=== PATIENT | male | born 1945 | race Caucasian/White ===

== ENCOUNTER 2024-09-06 08:21 | Inpatient (IN) | payer OTHER, SELFPAY ==
[2024-09-05] VITALS (11 sets, daily range): BP systolic 75–195; BP diastolic 29–92; BMI 25.7; BMI 24.8
[2024-09-05 09:26] LABS: % Basophils 0.2 % (0-2); % Eosinophils 3.5 % (0-6); % Immature Granulocytes 0.2 % (0-0.5); % Lymphocytes 25.6 % (20.5-51.1); % Monocytes 10.5 % (1.7-9.3); Absolute Eosinophils 0.2 10^3/uL (0-0.7); Absolute Lymphocytes 1.5 10^3/uL (1.2-3.4); Absolute Monocytes 0.6 10^3/uL (0.1-0.6); Absolute Neutrophils 3.5 10^3/uL (1.4-6.5); Hematocrit 36.3 % (39.0-52.0); Hemoglobin 12.3 g/dL (13.0-18.0); Mean Corp Hgb Conc. 33.9 g/dL (33.0-37.0); Mean Corpuscular Hgb 33.6 pg (27.0-31.0); Mean Corpuscular Volume 99.2 fL (80.0-94.0); Mean Platelet Volume 9.1 fL (7.4-10.4); Nucleated Red Blood Cells % 0 % (-); Platelet Count 141 10^3/uL (130-400); Red Blood Cell Count 3.66 10^6/uL (4.70-6.10); Red Cell Dist. Width 12.5 % (11.5-14.5); White Blood Cell Count 5.7 10^3/uL (4.8-10.8)
[2024-09-05 09:36] LABS: INR 1.03; PT 13.8 Sec (11.4-14.6)
[2024-09-05 09:39] LABS: ALT (SGPT) 15 U/L (0-50); AST (SGOT) 13 U/L (17-59); Albumin 4.5 g/dl (3.5-5.0); Alkaline Phosphatase 79 U/L (38-126); Blood Urea Nitrogen 40 mg/dl (9-20); Calcium 9.4 mg/dl (8.4-10.2); Carbon Dioxide 21 mmol/L (22-30); Chloride 110 mmol/L (98-107); Estimated Creatinine Clearance 25 ml/min; Glucose 113 mg/dl (70-99); Potassium 4.7 mmol/L (3.5-5.1); Sodium 141 mmol/L (135-145); Total Bilirubin 0.9 mg/dl (0.2-1.3); Total Protein 7.2 g/dl (6.3-8.2); eGFR 24.17
[2024-09-05 09:51] LABS: Troponin I 0.014 ng/ml
--- NOTE | 2024-09-05 10:00 | ED.GENMED ---
History of Present Illness
General
Chief Complaint: Numbness
Source: patient
Exam Limitations: none
Time Seen by Provider: 09/05/24 08:33
Nursing documentation reviewed up to this point in time: agreed with
History of Present Illness
History of Present Illness:
79 y/o M with h/o HTN
here with facial and right upper and lower extremity numbness that began last evening around 830 when patient was just laying down. Patient says he was awake and felt a tingling first in his lips followed by right arm and felt like it was nearly
the entire arm including his fingers as well as his right foot. It lasted about half an hour. Patient said he got up and walked around and had no weakness, headache, vision changes, balance problems, neck pain, chest pain or shortness of breath.
Patient said initially that the symptoms fully resolved however after being asked several times he says he has a little bit of tingling around his mouth this morning especially his right bottom lip. He did not noticed that his speech was slightly
thickened. 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 Patient takes blood pressure medication but is not on aspirin or Plavix. He has never
had a stroke. He has not had any neck manipulation.
He says he otherwise feels fine this morning.
Past History
Past History
ED Past Medical History: HTN
ED Past Surgical History: Cholecystectomy
Social History
Tobacco: Non-smoker
Alcohol: None
Personal:
Living: with family
Review of Systems
Review of Systems
Allergies reviewed?: Yes
All Other Systems: Not applicable
Phy Exam
Physical Exam
Physical Exam:
GENERAL: Alert , in no apparent distress
HEAD: NCAT
EYE: pupils equal and reactive, no nystagmus, no photophobia
NECK: Supple,full rom, nontender
ENT: o/p clr, mmm.
CARDIAC: Regular rate and rhythm . no edema
LUNGS: Clear breath sounds bilaterally, no acute respiratory distress, no wheezes/rales/rhonchi
ABDOMEN: Soft, without focal tenderness, no r/g, no cvat
NEUROLOGICAL: Alert and orientedx 4, cn intact, slightly dysarthric at times, no facial asymmetry, 5/5 strength in UE/LE, sensation intact, romberg neg, ambulates without assistance, neg pronator drift
SKIN: Warm and dry, skin intact.
MUSCULOSKELETAL: No edema, well perfused.
PSYCH: Normal and appropriate interaction.
Course
Orders/Labs/Results
Orders:
Orders
09/05/24 09:10
Electrocardiogram (*1) Stat
Reason for Study: Other
Other Reason for Exam: neuro symptoms
Cardiac Monitoring- Treatment ONCE
EKG- Treatment ONCE
09/05/24 09:12
Cardiovascular Evaluation Urgent
Complete Blood Count/With Diff Urgent
Comprehensive Metabolic Panel Urgent
Ferritin Urgent
Folate Urgent
Magnesium Urgent
PTT Urgent
Phosphorus Urgent
Prothrombin Time Urgent
TSH Reflex To Free T4 Urgent
Troponin I Urgent
Vitamin B12 Urgent
09/05/24 09:31
CT Head W/o Iv Contrast Urgent
Reason For Exam: numbness face RUE, RLL, elevated labs
09/05/24 Lunch
Cholesterol Lowering
At Your Request: Full Participation
09/05/24 10:55
0.9% Sodium Chloride 500 ml [Nss] 500 ml IV BOLUS
Carotid US [US Cerebrovascular] Urgent
Comment:
Reason For Exam: R facial numbness; tia
09/05/24 10:59
Urinalysis Reflex To Culture Urgent
Date Specimen was Collected: 09/05/24
Time Specimen was Collected: 09:11
Urine Microscopic Reflex Cult Urgent
09/05/24 11:16
Aspirin 325 mg PO NOW STA
09/05/24 12:49
Old Records Request [Obtain Records] As Directed
Dates of Information to be Released: most recent
Type of Information Requested: Entire Record
Radiology Results
Lab Results
Last Office Visit H&P
If Other, list type of info requested: dr kandi james [phone] and [facility]
Obtain Records from: [facility] [phone].MRI [address] Brain most recent
09/05/24 12:58
MRI Brain [MR Brain Without Contrast] Routine
Comment:
Reason For Exam: Face, arm, leg numbness concern CVA/TIA
OK for patient to be off Cardiac Monitoring for MRI: Yes
Recent pill cam endoscopy?: No
Pacemaker/Defibrillator?: No
HydrALAZINE [Apresoline] 10 mg IV Q6HPRN PRN
09/05/24 12:59
NEUROLOGY CONSULT Routine
Consulting Provider: Spencer Lau
Was physician already notified: Yes
Reason for consult: Right face, arm, leg tingling numbness concern CVA/TIA
Speech Therapy Eval & Treat Routine
09/05/24 13:00
Admit/Transfer Patient As Directed
Co-Sign Provider:
Level of Care: Observation services
Assign to:: Telemetry
Physician / Group: rosalba hendrix
Diagnosis: r sided facial, hand arm, leg numbness tingling conc CVA/TIA, HARLEEN on CKD4
Reason for Telemetry: CVA/TIA
Date to Stop Telemetry: 09/08/24
Time to Stop Telemetry: 11:00
Reason for Hospitalization: r sided facial, hand arm, leg numbness tingling conc CVA/TIA, HARLEEN on CKD4
Code Status As Directed
Resuscitation Status: Full Code
0.9% Sodium Chloride 500 ml [Nss] 500 ml IV 100 mls/hr
09/05/24 13:04
PRN Pain Medication Management As Directed
May give lesser potent ordered pain med per pt: Yes
preference::
Protocol:: Medication orders for pain may be administered in a
manner that supports deferring to patient preference
when the pt is:
- Requesting an ordered lesser potent pain medication.
Least to most potent pain medications are defined
as: acetaminophen < NSAID < tramadol < opioids
(morphine, oxycodone, hydromorphone).
- Requesting a lesser dose of the same medication IF
ORDERED.
- Requesting a less intrusive route of administration
if both routes are prescribed by the provider (PO <
IV).
09/05/24 13:05
Add On- LAB Urgent
Tests Added?: b12, tsh with free t4
09/05/24 13:14
Add On- LAB Urgent
Tests Added?: mag , phos
09/05/24 13:28
Add On- LAB Routine
Tests Added?: folate, ferritin, TSH reflex, B12, lipid panel
09/05/24 14:53
Acetaminophen [Tylenol] 650 mg PO Q4HPRN PRN
09/05/24 14:53
Activity As Directed
Activity Level: As Tolerated
Intake/ Output As Directed
Frequency: Per unit guidelines
Pneumatic Compression Sleeves As Directed
Type: Knee high
Vital Signs As Directed
Frequency: Per unit guidelines
DX Deep Vein Thrombosis Video Routine
09/05/24 18:00
Atorvastatin [Lipitor] 40 mg PO QPM
09/05/24 20:00
Brimonidine [Alphagan P 0.15% Eye Drops] See Dose Instructions BOTH EYES BID
09/05/24 22:00
Latanoprost [Xalatan Ophthalmic Solution] See Dose Instructions BOTH EYES HS
09/06/24 06:00
Cardiovascular Evaluation IN AM
Complete Blood Count/With Diff IN AM
Comprehensive Metabolic Panel IN AM
Hgba1c [Glycohemoglobin (HgbA1c)] IN AM
Magnesium IN AM
09/08/24 11:00
DC Protocol for Telemetry ONCE
Abnormal Lab Results
09/05/24 09/05/24
09:12 10:59
RBC 3.66 L 10^6/uL
(4.70-6.10)
Hgb 12.3 L g/dL
(13.0-18.0)
Hct 36.3 L %
(39.0-52.0)
MCV 99.2 H fL
(80.0-94.0)
MCH 33.6 H pg
(27.0-31.0)
Monocytes % 10.5 H %
(1.7-9.3)
Chloride 110 H mmol/L
(98-107)
Carbon Dioxide 21 L mmol/L
(22-30)
BUN 40 H mg/dl
(9-20)
Creatinine 2.6 H mg/dL
(0.7-1.3)
Glucose 113 H mg/dl
(70-99)
AST 13 L U/L
(17-59)
Triglycerides 194 H mg/dl
(10-149)
VLDL Cholesterol, Calc 38 H mg/dl
(0-30)
Urine Albumin (Reflex) 3+ A
(Neg - Trace)
09/05/24 09:12
09/05/24 09:12
Vital Signs
Initial and Last Documented VS:
Initial Vital Signs
Temp Pulse Resp BP Pulse Ox
36.6 C 65 16 195/85 97
09/05/24 07:41 09/05/24 07:41 09/05/24 07:41 09/05/24 07:41 09/05/24 07:41
Last Documented Vital Signs
Temp Pulse Resp BP Pulse Ox
36.5 C 66 18 170/74 100
09/05/24 14:58 09/05/24 14:58 09/05/24 14:58 09/05/24 14:58 09/05/24 14:58
MDM/Problems Addressed
Differential Diagnosis Includes:
TIA, stroke, dehydration
MDM/Problems Addressed:
79 y/o M
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
numbness mouth, RUE, RLE last night 30 minutes, the arm/leg resovled, but still has mild mouth numbness and occ dysarthria
nih 1 for the speech
ct head neg
cr is 2.6 up from previous 1.6 but i called PCP and last one was 2.1 last year
unable to have CTA, so US carotids prelim neg
ivf, neuro, mri
*Critical Care Note
Total Time (30-74mins, 75-104mins- exclusive of procedures): Not Applicable
ED Attending Note
-
Portions of this chart may have been created with voice recognition software.� Occasional wrong word or��sound alike� substitutions may have occurred due to the inherent limitations of voice recognition software.
Discharge Plan
Departure
Patient Disposition: Admit
Date of Disposition: 09/05/24
Time of Disposition: 11:07
Admit to: Telemetry
Presentation/result/management discussed w/ accepting MD/DO: Hospitalist
Patient with high blood pressure during this ER visit?: Yes
Condition: Fair
Covid-19: Not Applicable
Discharge Problem:
Brain TIA, Acute renal insufficiency
Interventions
Interventions:
*Risk Screen - Suicide Last Done: 09/05/24 07:41
*General Assessment Last Done: 09/05/24 07:41
*Neglect/Abuse Screening Last Done: 09/05/24 07:41
*ED COVID-19 Vaccine History Last Done: 09/05/24 09:07
ED- Neurological Assessment Last Done: 09/05/24 09:25
[2024-09-05 11:24] LABS: Urine Albumin 3+ (Neg - Trace); Urine Bilirubin Negative (Negative); Urine Character Clear (Clear); Urine Color Yellow; Urine Glucose Negative (Negative); Urine Ketone Negative (Negative); Urine Leukocyte Negative (Negative); Urine Nitrite Negative (Negative); Urine Occult Blood Negative (Negative); Urine Urobilinogen Negative (Neg - 1+)
[2024-09-05 11:35] LABS: Urine Red Blood Cell 0-2 /HPF (0-2); Urine Squamous Cell 0-2 /LPF (Few); Urine White Cell 0-2 /HPF (0-5)
--- NOTE | 2024-09-05 11:43 | VASLABRESULT ---
Preliminary VascularLab Result
- -
A preliminary report for the carotid ultrasound was given to Rupinder Pedroza per Dr. Good. The carotid ultrasound was negative. Dr. Good will read the study later today.
[2024-09-05] MEDS: NSS 500 IV ×2 (12:00→15:54)
[2024-09-05] MEDS: ASPIRIN 325 MG PO (12:22)
--- NOTE | 2024-09-05 12:22 | HPS.HSE ---
Family Physician
-
Family Physician: Sebastián Razo
Chief Complaint
-
Right upper lower lip numbness, right hand, right foot numbness yesterday, thickened speech earlier today
History of Present Illness
79-year-old male complaining of right upper and right lower extremity numbness that began last night 09/04/2024 around 8:30 PM while he was lying down. Ports feeling a tingling first in his lips followed by tingling to the right arm including
fingers entire hand as well as his right foot. He reports the symptoms lasted approximately 1/2-hour he then was able to get up and walk around with no residual deficits. 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
conversation with one of the nurses who noted that he had slight thickening of his speech. He did report slight tingling still of the right side of his mouth. He denies fever, sore throat, chills, headache, blurred vision, neck pain, chest pain,
palpitations, cough, shortness of breath, abdominal pain, nausea, vomiting, diarrhea, urinary symptoms, rash, sick contacts. He states sometime in the fall of last year 2023 he had elevated creat he was advised to start drinking more water he had
repeat labs 3 months later and states he was not told that they were elevated anymore. He sees Dr. Sebastián Razo as a PCP. He believes several years ago he was having a really bad headache he was treated at [facility] and check in town did have CT and
MRI of his brain that was normal.
He has past medical history of hypertension , glaucoma.
Medical History
Past Medical History
Past Medical History: Reports Other
Additional Past Medical History:
Hypertension
Past Surgical History: Reports Other
Additional Past Surgical History:
Cholecystectomy
Social History
Tobacco: Former Smoker (10 years 1 pack a day quit 40 years ago)
Alcohol: None
Drug: None
Personal:
Living: With Family ( Carolyn)
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
Family History
Family History: Other (Mother during childbirth of 8 th child, father age 57 unclear believes GI ulcer, 1 sister cancer unknown in her 60s 1 brother age 7 hit by car 1 sister glaucoma other 3 sisters healthy other brother
estranged from)
Allergies / Home Medications
Allergies reflects when Allergies were last updated in [employer].
Home Medications with original date entered in [employer]
Allergy/Medication List:
Allergies
Allergy/AdvReac Type Severity Reaction Status Date / Time
No Known Allergies Allergy Verified 09/05/24 07:46
Home Medications
Triflex 09/05/24
Vitamin D3 1,000 tab PO DAILY 09/05/24
brimonidine 0.15 % eye drops 1 drp BOTH EYES BID 09/05/24
enalapril maleate 10 mg tablet 10 mg PO HS 09/05/24
latanoprost 0.005 % eye drops 1 drp BOTH EYES HS 09/05/24
Review of Systems
-
History Source: Patient
A 12 point ROS was completed and negative except as noted: Yes
Constitutional: Denies Fever, Fatigue or Chills
EENT: Reports Other (Numbness to right upper and right lower lip only, reported thick speech earlier this a.m. by nurse on his bus currently resolved); Denies Sore Throat or Runny Nose
Respiratory: Denies Cough, Hemoptysis or Trouble Breathing
Cardiac: Denies Chest Pain, Diaphoresis, Palpitations or Syncope
Abdomen/GI: Denies Abdominal Pain, Nausea, Vomiting, Diarrhea, Constipated, Bloody Stools or Black Stools
: Denies Dysuria, Frequency, Flank Pain, Incontinence, Difficulty Voiding, Urgency or Bleeding
Musculoskeletal: Denies Joint Pain or Edema
Skin: Denies Itching, Rash or Other
Neurological: Reports Numbness (Right hand is unable to tell whether dorsal volar and right foot yesterday currently resolved); Denies Dizzy, Headache or Weakness
Endocrine: Reports No Symptoms
Hematologic/Lymphatic: Reports No Symptoms
Psych: Reports Calm
Physical Exam
Vital Signs
Vital Signs
Temp Pulse Resp BP Pulse Ox
97.9 F 70 24 114/86 99
09/05/24 07:41 09/05/24 11:00 09/05/24 11:00 09/05/24 11:00 09/05/24 11:00
Physical Exam
General: Comfortable and Conversant; No Pain, Fever or Chills
HEENT: NormoCephalic, Anicteric, Moist mucous membranes, PERRLA, [place] Conjunctivae, No Ptosis, Neck Nontender and Other (Speech is clear, tongue is midline no facial droop appreciated)
Respiratory: Clear; No Wheezes, Rales or Rhonchi
Cardiac: S1/S2 and Regular Rhythm; No Murmur, Rub, Gallop or Peripheral Edema
Breast: Deferred by me
GI: Soft, Non Tender, Non Distended, Normal Bowel Sounds and No Hepatosplenomegaly
Rectal: Deferred by Provider
Genito-urinary: Deferred by me
Musculoskeletal: No Clubbing, No Cyanosis and No Edema
Skin: Warm and Dry; No Rash
Neuro: AO x 3, No Motor Deficits, Nonfocal/grossly intact, Cranial Nerves Intact, No Sensory Deficits, DTR's Intact & Symmetrical and Other (Right hand is unable to tell whether dorsal volar and right foot yesterday currently resolved, patient
[id number]); No Slurred Speech, Facial Droop, Tremors or Sedated
Psych: Calm
Laboratory Results
-
09/05/24 09:12
09/05/24 09:12
Laboratory Results
PT 13.8 Sec (11.4-14.6) 09/05/24 09:12
INR 1.03 09/05/24 09:12
APTT 33.0 Sec (23.4-35.0) 09/05/24 09:12
Total Bilirubin 0.9 mg/dl (0.2-1.3) 09/05/24 09:12
AST 13 U/L (17-59) L 09/05/24 09:12
ALT 15 U/L (0-50) 09/05/24 09:12
Alkaline Phosphatase 79 U/L (38-126) 09/05/24 09:12
Troponin I 0.014 ng/ml 09/05/24 09:12
Data Reviewed
-
CT Scan: Report Reviewed by me
Lab Data: Labs Reviewed by me
Impression/Plan
-
Impression/plan:
Observation telemetry
#Right side facial numbness with slurred speech concern for CVA/TIA
-Symptoms started 8:30 PM yesterday 09/04/2024
-Out of window for any tPA
-Consult neurology
-Give aspirin 325 mg now then aspirin 81 mg daily
-Will start Lipitor 40 mg at bedtime
-Check carotid ultrasound
-Obtain old MRI and CT results from [facility] several years ago
-MRI brain
-Speech swallow eval
-Check lipid profile, HgbA1c, check B12
-PT/OT/case management consult
CT head:
1. No CT evidence for acute intracranial hemorrhage or transcortical infarct.
2. Mild periventricular white matter leukoaraiosis in both cerebral hemispheres.
3. Mild diffuse cerebral and cerebellar volume loss.
4. Severe multilevel discogenic degenerative disease in the cervical spine.
#HARLEEN Possibly secondary to volume depletion on CKD4
Creat 2.6/bun 40 , prior creat 1.6 02/17/2021
-Obtain records from Dr. SEBASTIÁN Razo's office including labs from fall 2023 where creat was elevated per patient
-IV NSS 1 L given in ER, will give additional IV NSS 100 cc an hour x 500 cc total
-Follow BMP, mag, Phos
#HTN�benign
BP 114/86
-Hold enalapril 10 mg at bedtime due to HARLEEN on CKD
-IV hydralazine as needed SBP> 165 DIS> 110
#Glaucoma
-Continue brimonidine 1 drop both eyes twice daily, latanoprost 1 drop both eyes at bedtime
DVT prophylaxis
SCDs
Full code patient's emergency contact is his Carolyn
--- NOTE | 2024-09-05 12:35 | W.PN.UPDATE ---
Update Note
Progress Note Update
This note serves as an addendum to the H&P by cold meat cook SAVANNAH
Christine ELAINE
HPI
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
- pw abrupt onset of numbness mouth, RUE, RLE last night 30 minutes
- resolved symptoms in the arm/leg
- still has mild mouth numbness and occ dysarthria
At ER:
- NIH on arrival is 1 for the speech
- NEG HCT
- Prelim NEG b/l CUS
- cannot have CTA due to Cr 2.6
Vital Signs
Temp Pulse Resp BP Pulse Ox
97.9 F 70 24 114/86 99
09/05/24 07:41 09/05/24 11:00 09/05/24 11:00 09/05/24 11:00 09/05/24 11:00
PE
Gen: NAD , Rt handed
HEENT: nl speech. nl language function. symmetric face, no tongue deviation on protrusion
Neck: supple . No bruit
Lungs: CTA
Cor: RRR. No murmur
Abdomen: benign exam
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
MS: no edema
Psych: nl mood and affect
Laboratory Tests
02/17/21 09/05/24 09/05/24
15:42 09:12 10:59
Hgb 12.3 L
Plt Count 141
Sodium 141
Potassium 4.7
Carbon Dioxide 21 L
BUN 40 H
Creatinine 1.6 H 2.6 H
eGFR 24.17
Troponin I 0.014
Urine Clarity Clear
Urine WBC (Reflex) 0-2
ASSESSMENT & PLAN
TIA/ r/o CVA of NIH1
Somewhat circumoral paraesthesia at Rt corner of mouth; Not dysarthria on my exam. No focal motor weakness
Abrupt onset of numbness mouth, RUE, RLE for 30 Mins last night
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
No prior HX TIA/CVA
- NIH on arrival is 1 for the speech
- NEG HCT
- Prelim NEG b/l CUS
- cannot have CTA due to Cr 2.6
- Loaded ASA 325mg - cont baby ASA daily
- Brain MRI
- ECHO
- Neuro consult
Suspect element of HARLEEN
Known CKD suspect stage 3
- IV NS and trend Cr
- Hold Enalapril for now and trend Cr
- avoid nephro toxic agent
Benign HTN
- stable
- Hold Enalapril for now and trend Cr
- IV Labetalol PRN if SBP > 185, DBP > 110
DVT Px: SCD
Full code
Obs TLM
--- NOTE | 2024-09-05 13:11 | CON.NEURO4 ---
Addendum entered and electronically signed by Spencer Lau MD 09/05/24 16:47:
Studies reviewed.
I have personally examined the patient. I reviewed and agree with the JEWELRY COATER's Note.
My addenda:
Awake, alert, interactive. No acute distress.
Speech intact.
Follows 2-step requests w/ minimal difficulty. No tremor. Severe difficulty with serial sevens.
Extra-ocular movements grossly intact.
Facial movements full and symmetric. Hearing intact to normal conversational volume.
Normal UE movements bilaterally.
Neck: full ROM.
Chest: no dyspnea
Heart: no JVD
Ext: (-) Clubbing, (-) Cyanosis, (-) Edema
IMPRESSIONS/RECOMMENDATIONS:
Abrupt onset of right hemibody sensory change which was transient in a patient who has mild cognitive changes on examination including significant difficulty with serial sevens
Check MRI of brain
Continue aspirin with consideration for clopidogrel dependent on MRI imaging. If MRI does demonstrate acute ischemic lesion, would add clopidogrel
Check carotid ultrasound, not able to perform CT angiogram due to renal insufficiency
Goal of permissive hypertension with systolic blood pressure less than 220 and diastolic blood pressure less than 120 until 2030 hrs. at which time normotension is acceptable
Continue newly established atorvastatin 40 mg daily
Check blood work for potential metabolic abnormalities
Rehabilitation evaluations
Will continue to follow pending results.
Original Note:
Documented by User: Yumi Carbajal NP 09/05/24 13:46
Consultation - Neurology 4
-
CONSULTING PHYSICIAN: Spencer Lau MD
REFERRING PHYSICIAN: Hospitalists/MANSOOR Hillman
DICTATED BY: MANSOOR Aparicio
DATE/TIME OF REQUEST: 09/05/24
DATE/TIME OF CONSULTATION: 09/05/24
Reason for Consultation: Numbness
History of Present Illness:
This is an 79-year-old right-handed male who has presented to the hospital with report of paresthesias. Patient reports sitting up in bed at 2030 last night when suddenly his lips started feeling numb, then his right hand/arm, then his right foot.
After about 30 minutes this resolved completely. He proceeded to go to sleep for the night, he woke up a couple of times during the night to urinate and felt at his baseline. At work this morning he noticed that his bottom right lip felt numb again.
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 Blood pressure on arrival was 195/85. CT head was obtained on arrival and is negative for any acute abnormalities. NIHSS is 0. He is not a candidate for TNK/IAT due to
NIHSS 0/resolution of symptoms. He denies any headache, dizziness, vision changes, speech/swallow difficulty, numbness, weakness, chest pain, palpitations, and shortness of breath. He notes chronic lower back pain.He was loaded with aspirin in the
ER. He reports having one severe headache in the past for which he had an MRI brain at an outside hospital that he reports was normal. He denies any history of stroke, TIA, or ocular migraines.
Past Medical History: HTN, CKD, arthritis, gout, glaucoma
Surgical History: Cholecystectomy.
Family History: Reviewed and noncontributory.
Social History: Former smoker. Denies alcohol and illicit drug use.
Allergies: No known allergies.
Home Medications: See below.
Review of Symptoms:
Patient denies any fever, headache, chest pain, shortness of breath, GI or symptoms.
�Per the HPI.�All systems are reviewed negative except above.
Physical Exam:
The patient is afebrile, abdomen is nondistended, breathing is unlabored, skin is warm and dry, no edema.
NIH Stroke Scale:
I performed the NIH stroke scale on the patient on 09/05/24 at 1315. The patient scored 0 points on the NIH stroke scale assessment, which were assigned as follows: See below.
Neurologic Examination:
The patient is awake, alert and oriented x 3. He is able to follow commands and answer questions appropriately. There is no aphasia or dysarthria. On cranial nerve assessment, pupils are 3 mm bilateral, round and reactive to light and
accommodation. Visual good are full. Extraocular movements are intact. Facial sensations are intact and bilaterally symmetrical, there is no facial asymmetry. Hearing is diminished bilaterally to normal conversation volume. Tongue palate and uvula
are midline. Sternocleidomastoid strengths are full bilaterally. Motor strengths are 5/5 bilateral upper and lower extremities on medical research [place] scale. There is no drift or involuntary movement noted. Deep tendon reflexes are 1+ bilateral
upper and lower extremities and Babinski is absent bilaterally. There was no extinction noted on double simultaneous stimulation. Coordination is intact by finger to nose bilaterally. LUE satellites slightly around RUE.
Lab Results: See below.
Neuro Imaging:
1. CT Head 09/05/24: No CT evidence for acute intracranial hemorrhage or transcortical infarct. Mild periventricular white matter leukoaraiosis in both cerebral hemispheres. Mild diffuse cerebral and cerebellar volume loss. Severe multilevel
discogenic degenerative disease in the cervical spine.
Differentials for the patient's presentation include:
1. Concern for an acute ischemic stroke producing transient numbness.
2. Hypertensive urgency.
Patient has the following risk factors for their symptoms: HTN, former smoker, age
IV Tenecteplase/IAT candidacy: He is not a candidate for TNK/IAT due to NIHSS 0/resolution of symptoms.
Recommendations:
-Continue aspirin 81mg daily. Will likely add clopidogrel 75mg daily for 21 days, awaiting MRI brain imaging that is currently being done.
-Carotid ultrasound pending.
-Permissive hypotension SBP<220, DBP<120 until 2030 tonight, then goal normotension.
-LDL goal <70. Lipid panel pending. Continue newly initiated atorvastatin 40mg daily.
-Goal normoglycemia, hbA1c is pending.
-Checking blood work for metabolic abnormalities, see orders.
-NIHSS and neurological checks per unit guidelines.
-Provide patient with a stroke education packet.
-PT/OT/ST evaluations.
-DVT prophylaxis.
-Will follow pending results.
Discussed patient care with: Dr. Lau, the patient
Vital Signs and Labs
-
Vital Signs and Labs:
Vital Signs
Temp Pulse Resp BP Pulse Ox
97.9 F 69 23 189/75 98
09/05/24 07:41 09/05/24 13:00 09/05/24 13:00 09/05/24 13:00 09/05/24 12:30
Lab Results
09/05/24 09:12
09/05/24 09:12
PT 13.8 Sec (11.4-14.6) 09/05/24 09:12
INR 1.03 09/05/24 09:12
APTT 33.0 Sec (23.4-35.0) 09/05/24 09:12
Sodium 141 mmol/L (135-145) 09/05/24 09:12
Potassium 4.7 mmol/L (3.5-5.1) 09/05/24 09:12
BUN 40 mg/dl (9-20) H 09/05/24 09:12
Glucose 113 mg/dl (70-99) H 09/05/24 09:12
Calcium 9.4 mg/dl (8.4-10.2) 09/05/24 09:12
Medications
-
Active Medications
Generic Name Dose Route Start Last Admin
Trade Name Freq PRN Reason Stop Dose Admin
Hydralazine HCl 10 mg 09/05/24 12:58
Hydralazine 20 Mg/Ml Vial IV 10/03/24 12:57
Q6HPRN PRN
sbp>165 kathy>110
Sodium Chloride 500 mls @ 100 mls/hr 09/05/24 13:00
Nss IV 09/05/24 17:59
.Q5H CLAUDIA
Home Medications
�Medication �Instructions �Recorded
Triflex 09/05/24
Vitamin D3 1,000 tab PO DAILY 09/05/24
brimonidine 0.15 % eye drops 1 drp BOTH EYES BID 09/05/24
enalapril maleate 10 mg tablet 10 mg PO HS 09/05/24
latanoprost 0.005 % eye drops 1 drp BOTH EYES HS 09/05/24
NIH Stroke Score
Subsequent NIH Scale
Date of Subsequent NIH Scale: 09/05/24
Time of Subsequent NIH Scale: 13:15
NIH Stroke Score
Level of Consciousness: 0 - Alert
LOC Questions: 0-Answers both correctly
LOC Commands: 0-Performs both correctly
Best Horizontal Gaze: 0-Normal
Visual Good: 0=Normal, no visual loss
Facial Palsy: 0=Normal, symmetrical
Motor - Right Arm: 0=No drift 10 seconds
Motor - Left Arm: 0=No drift 10 seconds
Motor - Right Le-No drift 5 seconds
Motor - Left Le-No drift 5 seconds
Limb Ataxia: 0-Absent
Sensation: 0-Normal
Best Language: 0-No aphasia
Dysarthria: 0-Normal
Extinction and Inattention: 0-No abnormality
Total Score:: 0
Modified Home (mRS) Score
Modified Nash Scale (mRS): No symptoms
Score: 0
Alteplase Contraindication
Inclusion and Exclusion criteria reviewed: Yes
Reasons for NON-Tx with Thrombolytics ABSOLUTE Exclusions: Greater than 4.5 hrs from onset of sxs
IAT Contraindications: NIHSS < 6

Documented by User: Spencer Lau MD 09/05/24 16:42
NIH Stroke Score
NIH Stroke Score
Total Score:: 0
Modified Nash (mRS) Score
Score: 0
[2024-09-05 13:54] LABS: HDL Cholesterol 37 mg/dl; LDL Cholesterol, Calculated 108 mg/dl; Phosphorus 3.4 mg/dl (2.5-4.5); Total Cholesterol 183 mg/dl (50-199); Triglyceride 194 mg/dl (10-149); Very Low Density Lipoprotein 38 mg/dl (0-30)
[2024-09-05 15:39] LABS: TSH Reflex To Free T4 1.16 uIU/ml (0.47-4.68)
[2024-09-05 16:14] LABS: Folate 16.1 ng/ml (2.76-20); Vitamin B12 277 pg/ml (239-931)
--- NOTE | 2024-09-05 17:02 | PTCARENOTE ---
Received pt from ER via stretcher, accompanied by ER staff. Pt AAO x3, POLANCO well, ambulatory to bed, no c/o weakness/dizziness. NIHSS 0; pt denies numbness in face/RUR/RLE. VSS. PLaced on telemetry:NSR with first degree AVB. On room air- pulse ox
100%, no SOB noted. Abd large, soft, to start chol lowering diet; pt passed swallow eval. Pt voided in BR upon arrival to unit. Afebrile; skin intact. IVF's NSS @ 100 ml/hr (X 500 ml) infusing via Lt AC site without sx of infiltration. Oriented
to 4east, currently resting comfortably. Will continue to monitor.
[2024-09-05] MEDS: LIPITOR 40 MG PO (17:30)
[2024-09-05] MEDS: APRESOLINE 10 MG IV (18:06)
--- NOTE | 2024-09-05 19:30 | PTCARENOTE ---
TT sent to covering OUTREACH AND EDUCATION SOCIAL WORKER [facility] regarding BP 182/78. Hydaralazine IV was administered as per (PRN Q6 hour )order @1806 for BP 170/86. Will continue to monitor as Per OUTREACH AND EDUCATION SOCIAL WORKER [facility]. PT denies any chest pain or shortness of breath. Also denies any
headache or vision changes.
[2024-09-05] MEDS: ALPHAGAN P 0.15% EYE DROPS 1 DROP BOTH EYES (19:35)
[2024-09-05] MEDS: XALATAN OPHTHALMIC SOLUTION 1 DROP BOTH EYES (21:27)
[2024-09-06 03:34] VITALS: BP 142/68
--- NOTE | 2024-09-06 04:37 | DOWNTIME ---
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 Downtime documentation of patient's care, including medication administrations, has been reconciled in the electronic record per guidelines. Refer to the
patient's paper chart under the miscellaneous tab to see printed paper medication records and downtime forms.
--- NOTE | 2024-09-06 06:54 | W.PN.HOSP.TC ---
Today's Communication/Plan
-
discharge
Assessment / Plan
Assessment / Plan
Physical Exam
General: No acute distress. appears comfortable at this time.
HEENT: NormoCephalic, Anicteric, Moist mucous membranes, PERRLA, Scipio Conjunctivae, no facial droop
Respiratory: Clear; No Wheezes, Rales or Rhonchi
Cardiac: S1/S2 and Regular Rhythm; No Murmur, Rub, Gallop
GI: Soft, Non Tender, Non Distended, Normal Bowel Sounds and No Hepatosplenomegaly
Musculoskeletal: No Clubbing, No Cyanosis and No Edema
Skin: Warm and Dry; No Rash
Neuro: AO x 3 conversant coherent strength 5/5 all extremities
Psych: Calm
79M HTN Former Smoker Glaucoma here for evaluation transient lip and right side numbness with associate slurred speech. CVA ruled out, likely TIA.
#Right side facial numbness with slurred speech concerning for TIA, CVA ruled out
-Consult neurology Appreciated cont ASA statin (new medications)
-carotid ultrasound appreciated no acute abn's
-MRI brain appreciated no acute abn's, mild atrophy w signs mild small vessel ischemic disease, prior lacunar infarct left caudate head (though no acute stroke, overall clinical picture concerning for possible underlying vascular dementia 2/2
chronic uncontrolled hypertension)
-lipid profile appreciated hyperlipidemia cont statin as above
-HgbA1c appreciated 5.7 prediabetic
- Vit B12 lvl noted low 277, supplementation started (possible source of cognitive impairment)
-PT appreciated no skilled needs
-ST/OT eval concerning for mild/mod cognitive impairment/dementia outpt OT follow up advised- recommended to abstain from driving pending clearance outpatient OT or primary care provider. This was discussed with both patient and his Carolyn at
length, both verbalized understanding of recommendation to not drive pending clearance, at capacity to make their own decisions, but also expressed refusal to follow recommendation, able to verbalize their understanding of risk noncompliance with
recommendation- including possible accident/injury/harm to others or self/possible .
#HARLEEN vs CKD4 (more likely)
-Initial Cr 2.6 since improved to 2.3 following IVF
-outpt follow with Nephrology recommended
-repeat outpt BMP in 2-3 recommended, results to be forwarded to primary care provider, script provided to facilitate.
#HTN
received prn Hydralazine overnight, BP since improved
Cont hold home Enalapril given concerns HARLEEN as above
Amlodipine 2.5 mg daily started
#Glaucoma
-Continue brimonidine 1 drop both eyes twice daily, latanoprost 1 drop both eyes at bedtime
DVT prophylaxis
SCDs
Total Time Preparing Discharge __50 minutes including examination of the patient, summary of the hospital stay, instructions for continuing care to all relevant caregivers; and preparation of discharge records, prescriptions, and referral
forms if necessary.
Anticipated Discharge: Today
Subjective/Interval History
-
Date of Service: September 06, 2024
No acute distress. Reports feeling well. Denies new acute issues at this time. Reports symptoms resolved including numbness lips and right side. Ambulating without issues or need for assist device. Eager to go home.
Objective Data
-
Labs:
Laboratory Results
09/06/24
06:52
WBC Pending
Hgb Pending
Hct Pending
Plt Count Pending
Sodium Pending
Potassium Pending
Chloride Pending
Carbon Dioxide Pending
BUN Pending
Creatinine Pending
Glucose Pending
Calcium Pending
Total Bilirubin Pending
AST Pending
ALT Pending
Alkaline Phosphatase Pending
Vital Signs:
Vital Signs
Temp Pulse Resp BP Pulse Ox
97.9 F 67 18 142/68 97
09/06/24 03:34 09/06/24 03:34 09/06/24 03:34 09/06/24 03:34 09/06/24 03:34
I&O
09/04/24 09/05/24 09/06/24
06:59 06:59 06:59
Intake Total 440 / 440
Balance 440 / 440
[2024-09-06 07:13] LABS: % Basophils 0.5 % (0-2); % Eosinophils 2.9 % (0-6); % Immature Granulocytes 0.3 % (0-0.5); % Lymphocytes 23.2 % (20.5-51.1); % Monocytes 10.2 % (1.7-9.3); % Neutrophils 62.9 % (42.2-75.2); Absolute Eosinophils 0.2 10^3/uL (0-0.7); Absolute Lymphocytes 1.5 10^3/uL (1.2-3.4); Absolute Monocytes 0.7 10^3/uL (0.1-0.6); Absolute Neutrophils 4.1 10^3/uL (1.4-6.5); Hematocrit 35.5 % (39.0-52.0); Hemoglobin 12.2 g/dL (13.0-18.0); Mean Corp Hgb Conc. 34.4 g/dL (33.0-37.0); Mean Corpuscular Hgb 33.4 pg (27.0-31.0); Mean Corpuscular Volume 97.3 fL (80.0-94.0); Mean Platelet Volume 9.4 fL (7.4-10.4); Nucleated Red Blood Cells % 0 % (-); Platelet Count 143 10^3/uL (130-400); Red Blood Cell Count 3.65 10^6/uL (4.70-6.10); Red Cell Dist. Width 12.6 % (11.5-14.5); White Blood Cell Count 6.5 10^3/uL (4.8-10.8)
[2024-09-06 07:25] VITALS: BP 132/67
[2024-09-06 07:46] LABS: ALT (SGPT) 15 U/L (0-50); AST (SGOT) 13 U/L (17-59); Alkaline Phosphatase 78 U/L (38-126); Blood Urea Nitrogen 41 mg/dl (9-20); Calcium 9.3 mg/dl (8.4-10.2); Carbon Dioxide 19 mmol/L (22-30); Chloride 113 mmol/L (98-107); Estimated Creatinine Clearance 28 ml/min; Glucose 93 mg/dl (70-99); HDL Cholesterol 31 mg/dl; LDL Cholesterol, Calculated 98 mg/dl; Magnesium 1.9 mg/dl (1.6-2.3); Potassium 4.9 mmol/L (3.5-5.1); Sodium 143 mmol/L (135-145); Total Bilirubin 0.8 mg/dl (0.2-1.3); Total Cholesterol 163 mg/dl (50-199); Total Protein 6.6 g/dl (6.3-8.2); Triglyceride 171 mg/dl (10-149); Very Low Density Lipoprotein 34 mg/dl (0-30)
[2024-09-06] MEDS: ALPHAGAN P 0.15% EYE DROPS 1 DROP BOTH EYES (09:10)
[2024-09-06] MEDS: VITAMIN B-12 1000 MCG PO (09:11)
[2024-09-06] MEDS: LOW STRENGTH ASPIRIN 81 MG PO (09:11)
[2024-09-06 10:00] LABS: Glycohemoglobin (HgbA1c) 5.7 % (4.0-5.6)
[2024-09-06 10:12] VITALS: BP 121/57; BP 141/62; BP 142/56; PULSE 59; PULSE 60; PULSE 63
[2024-09-06 11:09] VITALS: BP 133/60
--- NOTE | 2024-09-06 12:43 | CM ---
Addendum entered by Lita Palmer 09/06/24 16:07:
Per hospitalist, patient has new dx of TIA and concerns for mild cognitive deficit. Hospitalist is not recommending for patient to drive until cleared by PCP or OP OT. Asking for CM to assist w/ transport home as patient drove himself to hospital.
CM spoke w/ patient regarding hospitalist's concerns and recommendation. Patient expressed frustration as he stated he did not have a stroke, though CM mentioned TIA, and that the doctor 'doesn't know what he's talking about'. CM encouraged for
patient to allow assistance w/ transport and for patient to follow up w/ his PCP. Patient cont to refuse stating he doesn't care what the doctor recommends and that once he is d/c, he is going to drive himself home. Patient stated he is never coming
here again. Patient stated doctor need to show him on paper where he had a stroke. Patient stated all 'they' been doing all day is taking his blood pressure. Patient remained disagreeable to not driving home.
IMM verbally reviewed
Addendum entered by Lita Palmer 09/06/24 12:48:
Patient LOC changed to IP today
Original Note:
Initial assessment completed. Patient admitted for right upper lower lip numbness, right hand, right foot numbness yesterday, thickened speech.
Patient resides w/ spouse [facility] 4 steps to enter the home. Patient is independent, no device needed. Patient has grab bars, shower chair in the home. Per spouse, patient has a special senior toilet that was ordered as he is
tall and the previous toilet was too small.
No SNF/VN/PT hx. Patient is physically active as he walks throughout the community. 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
Address, point of contact and insurance verified
PCP: Sebastián Razo
Pharmacy: [facility]
Plan: Anticipate home; no needs
[2024-09-06] MEDS: NORVASC 2.5 MG PO (13:45)
--- NOTE | 2024-09-06 14:30 | PTOTSP ---
Speech Language Pathology
Pt seen for speech and cognitive-linguistic evaluations. Pt reported 9th grade as highest level of education and reported struggling in school, but no supports available. Suspect an undiagnosed disorder, as pt reports lifelong difficulties
reading, writing, spelling, and pronouncing words. Language evaluated via the Quick Aphasia Battery (QAB), form 1. Pt with an overall score of 8.81 indicative of overall mild deficits.
Cognitive-linguistic status evaluated via the Piero Cognitive Assessment (MOCA), version 7.3. Pt with a score of 21/30 where normal range is 26-30. Pt with mild cognitive deficits. Pt states these are his baseline, but also stated he didn't
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
Pt also seen for clinical bedside swallow evaluation. P.O. trials of regular solids and thin liquids provided. Adequate mastication, bolus formation, and A-P transit noted with no oral residue. No overt signs of aspiration.
Recommend:
(1) Regular solids/thin liquids
(2) General aspiration precautions
(3) Meds as tolerated
(4) Outpatient rehab at discharge to address cognitive deficits
(5) JUNIOR JAVA DEVELOPER to continue to follow for cognitive-linguistic therapy. Dysphagia tx not indicated.
[2024-09-06 15:55] VITALS: BP 175/76
--- NOTE | 2024-09-06 17:01 | W.DCSUMMARY ---
Discharge Summary
Discharge Data
Date of Admission: 09/06/24
Date of Discharge: 09/06/24
-
Pending Results: No
Discharge Plan
-
Patient Disposition: Home (Routine Discharge)
Discharge Diagnosis/Procedures: Transient Ischemic Attack, Acute Stroke Ruled out
Acute Kidney Injury vs Chronic Kidney Disease Stage IV (more likely Chronic Kidney Disease)
Hypertension
Hyperlipidemia
Prediabetes
Mild Moderate Cognitive Impairment/possible vascular dementia
Vitamin B12 Deficiency (possibly contributing to cognitive impairment)
Condition: Fair
Diet: Low Cholesterol and 2 Gram Sodium
Activity: As tolerated
Driving Restrictions: As noted in Additional Instructions
Blood Work: Repeat BMP in 2-3 days of discharge. Results to be forwarded to primary care provider. Script has been provided to facilitate
Please repeat vitamin B12 level with primary care provider in 1 month of discharge
Activity Restrictions/Additional Instructions:
It is recommended that you abstain from driving at this time, due to cognitive impairment concerns, until cleared by outpatient occupational therapy (script provided to facilitate) or your primary care provider.
Please follow up with primary care provider in 1 week of discharge, Nephrology in 2 weeks of discharge, and neurology in 2-4 weeks of discharge.
Aspirin has been prescribed due to TIA (transient ischemic attack), to reduce risk recurrence TIA and your risk of stroke.
Atorvastatin has been prescribed for Hyperlipidemia, to reduce risk recurrence TIA and your risk of stroke.
Amlodipine has been prescribed for Hypertension. Your home enalapril has been placed on hold for now due to concerns acute kidney injury vs progression chronic kidney disease stage IV. Please keep a log of your pressures at home to review in
follow up with your primary care provider and/or other healthcare provider involved in your care for further evaluation/treatment hypertension.
For Vitamin B12 deficiency, a supplement has been prescribed. Vitamin B12 deficiency can also cause cognitive impairment.
Please take medications as prescribed/recommended and follow up with primary care provider and/or other healthcare provider involved in your care for refills and/or further adjustment to your medication regimen as necessary.
Instructions: Transient ischemic attack
Referrals:
Spencer Lau MD [Active] - in two to four weeks
Sebastián Razo MD [Family Provider] - in one week
Law Romero MD [Active] - in two weeks
Prescriptions:
New
atorvastatin 40 mg Tablet
40 mg PO QPM Qty: 30 0RF
cyanocobalamin (vitamin B-12) [Vitamin B-12] 1,000 mcg Tablet
1,000 mcg PO DAILY Qty: 30 0RF
amlodipine 2.5 mg Tablet
2.5 mg PO DAILY Qty: 30 0RF
aspirin 81 mg Tablet,Chewable
81 mg PO DAILY Qty: 30 0RF
Continued
latanoprost 0.005 % Drops
1 drp BOTH EYES HS
brimonidine 0.15 % drops
1 drp BOTH EYES BID
(DME) Triflex 1
Patient Comments:
last dose 09/04 in PM
Rx Instructions:
joint supplement
Vitamin D3
1,000 tab PO DAILY
Held
enalapril maleate 10 mg Tablet
10 mg PO HS
Hold Instructions: Follow up with primary care provider in 1 week of discharge to determine when safe to resume, if necessary to resume, and/or if an alternative agent is required instead.
Discharge Orders:
Discharge Patient (As Directed); Ordered 09/06/24
Ordered By: Minnie Hollins
Discharge Date and Time
Print Language: TELUGU
== END 2024-09-06 17:37 | disposition home or self-care (01) | DRG 69 ==
LOC: 4 EAST ACU 08:21
PROVIDERS: Clinical Nurse Specialist Family Health; Physician Assistant; ADMITTING PHYSICIAN Internal Medicine; ATTENDING PHYSICIAN Internal Medicine; CONSULT PHYSICIAN Psychiatry & Neurology Neurology; EMERGENCY PHYSICIAN Emergency Medicine; FAMILY PHYSICIAN Family Medicine
DX: G45.9 Transient cerebral ischemic attack, unspecified (principal); N17.9 Acute kidney failure, unspecified; N18.4 Chronic kidney disease, stage 4 (severe); I12.9 Hypertensive chronic kidney disease with stage 1 through stage 4 chronic kidney disease, or unspecified chronic kidney disease; E78.5 Hyperlipidemia, unspecified; R73.03 Prediabetes; E53.8 Deficiency of other specified B group vitamins; H40.9 Unspecified glaucoma; Z79.82 Long term (current) use of aspirin; Z87.891 Personal history of nicotine dependence
CPT/HCPCS: 70450; 70551; 80053; 80061; 81003; 81015; 82607; 82728; 82746; 83036; 83735; 84100; 84443; 84484; 85025; 85610; 85730; 92523; 92610; 93005; 93880; 97161; 97166; 99285